=== PATIENT | male | born 1970 | race Caucasian/White ===

== ENCOUNTER 2021-02-14 19:52 | Emergency (ER) | payer BC ==
[~2021-02-14 19:52] MED LIST: MELOXICAM15 MG PO; METHOCARBAMOL500 MG PO; ONDANSETRON ODT4 MG PO; SUMATRIPTAN SUC25 MG PO; TRAMADOL HCL50 MG PO; VITAMIN D3125 MC1 PO
[2021-02-14 21:08] LABS: HEMOGLOBIN 14.4 gm/dl (14.0-17.5); RED BLOOD COUNT 4.69 M/UL (4.20-5.50); WHITE BLOOD COUNT 5.8 K/UL (4.5-11.0)
[2021-02-14 21:27] LABS: BUN/CREATININE RATIO 17 (0-10)
[2021-02-14] MEDS ORDERED: PREDNISONE 20 M20 MG PO (22:07)
[2021-02-14] MEDS ORDERED: [UNRECOGNIZED DRUG - OTHER] OS (22:07)
[2021-02-14] MEDS ORDERED: VALACYCLOVIR1000 MG PO (22:07)
== END 2021-02-14 22:56 | disposition home or self-care (01) ==
LOC: ER1 19:52
PROVIDERS: Physician Assistant
DX: G51.0 Bell's palsy (principal); Z88.0 Allergy status to penicillin
CPT/HCPCS: 70450; 71045; 80053; 82550; 82553; 83874; 83880; 84484; 85025; 85610; 85730; 93005; 99284

== ENCOUNTER → 2021-04-29 | Outpatient (CLI) | payer OTHER ==
[~2021-04-29] MED LIST changes: +PREDNISONE 20 M20 MG PO; +VALACYCLOVIR1000 MG PO; +[UNRECOGNIZED DRUG - OTHER] OS
== END ==
LOC: EMI 12:58
DX: G51.0 Bell's palsy (principal); R20.0 Anesthesia of skin; R90.89 Other abnormal findings on diagnostic imaging of central nervous system
CPT/HCPCS: 70551

== ENCOUNTER → 2021-10-20 | Outpatient (CLI) | payer OTHER | LOC: EXRD 13:51 | DX: M54.50 Low back pain, unspecified (principal); M51.34 Other intervertebral disc degeneration, thoracic region | CPT/HCPCS: 72070; 72100 ==